=== PATIENT | female | born 1955 | race Caucasian/White ===

== ENCOUNTER → 2021-03-22 | Outpatient (CLI) | payer MEDICARE ==
[~2021-03-22] MED LIST: METHACHOLINE KIT (J7674) INH ONE
--- NOTE | 2021-03-22 13:45 | PFTRPT ---
Site: [facility], [address] [place] [address], [id number] ID: [id number] Name: DORIS SANDERS Visit Date: 03/22/2021 Second ID: [id number] Referring Doctor: Paul Devine D.O. Reviewing Doctor: Shorty Kumar MD [employer] Salesperson: Gladys REECE RRT Age: 65 : 1955 Sex: Female Race: Height: 67.00 Inches Weight: 210.00 Lbs BSA: 2.06 Order IDs: [id number] Requested Test(s): <RESP-PFT.PFT> Diagnosis: R91.8 test meet the ATS standards for acceptability and repeatability. Review Status: Not Reviewed Pre-Bronch Post-Bronch Pred Actual %Pred Actual %Chng SPIROMETRY FVC (L) 3.47 3.33 95 FEV1 (L) 2.65 2.83 106 FEV1/FVC (%) 77 85 110 FEF 25% (L/sec) 5.13 5.87 114 FEF 50% (L/sec) 3.43 3.89 113 FEF 75% (L/sec) 1.05 1.53 145 FEF 25-75% (L/sec) 2.22 3.28 148 FEF Max (L/sec) 6.33 6.41 101 FIVC (L) 3.42 FIF 50% (L/sec) 3.64 6.06 166 FIF Max (L/sec) 6.15 MVV (L/min) 94 95 101 Expiratory Time (sec) 7.04 Back Extrap Vol (L) 0.11 Time To FEFmax (sec) 0.084 LUNG VOLUMES SVC (L) 3.23 3.35 103 IC (L) 2.35 2.83 120 ERV (L) 0.87 0.52 59 TGV (L) 3.15 4.27 135 RV (Pleth) (L) 2.28 3.75 164 TLC (Pleth) (L) 5.50 7.10 129 RV/TLC (Pleth) (%) 42 53 125 DIFFUSION DLCOunc (ml/min/mmHg) 22.07 24.99 113 DLCOcor (ml/min/mmHg) 22.07 24.70 111 DL/VA (ml/min/mmHg/L) 4.01 4.49 111 VA (L) 5.50 5.51 100 BHT (sec) 10.15 IVC (L) 3.29 TLC (SB) (L) 5.66 AIRWAYS RESISTANCE Raw (cmH2O/L/s) 1.86 0.58 31 Gaw (L/s/cmH2O) 1.03 1.99 193 sRaw (cmH2O*s) 4.76 2.36 49 sGaw (1/cmH2O*s) 0.20 0.47 231 BLOOD GASES Hgb (gm/dL) 13.8
--- NOTE | 2021-03-22 14:35 | PFTRPT ---
Site: [facility], [address] [place], [address] ID: [id number] Name: DORIS SANDERS Visit Date: 03/22/2021 Second ID: [id number] Referring Doctor: Paul Devine D.O. Reviewing Doctor: Shorty Kumar MD Car Se[employer] Upholsterer: Gladys REECE RRT Age: 65 : 1955 Sex: Female Race: Height: 67.00 Inches Weight: 210.00 Lbs BSA: 2.06 Order IDs: [id number] Requested Test(s): <RESP-PFT.METH CHAL> Diagnosis: R06.2 of albuterol for post bronchodilator. Review Status: Not Reviewed Pre-Bronch Post-Bronch Pred Actual %Pred Actual %Chng SPIROMETRY FVC (L) 3.47 3.25 93 3.11 -4 FEV1 (L) 2.65 2.74 103 2.58 -5 FEV1/FVC (%) 77 84 110 83 -1 FEF 25% (L/sec) 5.13 5.09 99 5.20 2 FEF 50% (L/sec) 3.43 4.19 122 3.77 -10 FEF 75% (L/sec) 1.05 1.38 131 0.81 -41 FEF 25-75% (L/sec) 2.22 3.27 147 2.62 -19 FEF Max (L/sec) 6.33 5.10 80 5.30 3 FIVC (L) 3.47 3.14 -9 FIF 50% (L/sec) 3.64 5.68 155 6.04 6 FIF Max (L/sec) 5.83 6.05 3 Expiratory Time (sec) 6.78 7.02 3 Back Extrap Vol (L) 0.11 0.10 -9 Time To FEFmax (sec) 0.163 0.123 -24
== END ==
LOC: M CARPUL 12:58
PROVIDERS: ATTEND Internal Medicine Pulmonary Disease
DX: R91.8 Other nonspecific abnormal finding of lung field (principal); R06.02 Shortness of breath
CPT/HCPCS: 88738; 94010; 94070; 94726; 94729; 95070; J7674

== ENCOUNTER → 2021-08-28 | Outpatient (CLI) | payer MEDICARE ==
[~2021-08-28] MED LIST changes: +ISOVUE-300 61% 50ML VIAL As Ordered ONE; +LIDOCAINE 1% MDV 20ML VIAL As Ordered ONE; -METHACHOLINE KIT (J7674) INH ONE; +TRIAMCINOLONE ACETONIDE SUSP 40 MG/ML VIAL (J3301) As Ordered ONE
== END ==
LOC: M RADPRO 14:43
DX: M16.12 Unilateral primary osteoarthritis, left hip (principal)
CPT/HCPCS: 20610; 77002; J3301; Q9967

== ENCOUNTER → 2021-08-31 | Outpatient (REF) | payer MEDICARE | LOC: M LAB REF 16:57 | PROVIDERS: ATTEND Internal Medicine Endocrinology, Diabetes & Metabolism | DX: E04.2 Nontoxic multinodular goiter (principal) ==

== ENCOUNTER → 2021-09-25 | Outpatient (CLI) | payer MEDICARE ==
[~2021-09-25] MED LIST changes: +ATOR80TA59 PO; +CIDA500T2 PO; +ECOT81TA5 PO; +FISH1000 PO; +HYDR12.55 PO; +IRBE300T7 PO; -ISOVUE-300 61% 50ML VIAL As Ordered ONE; -LIDOCAINE 1% MDV 20ML VIAL As Ordered ONE; +METO1TAB7 PO; +NAPR-885 PO; +OMEG10002 PO; -TRIAMCINOLONE ACETONIDE SUSP 40 MG/ML VIAL (J3301) As Ordered ONE; +VALA1TAB5 PO; +VENL-37 PO; +VITMTA PO; +[UNRECOGNIZED DRUG - CODE] PO
== END ==
LOC: M LABSMTC 09:12
PROVIDERS: ATTEND Anesthesiology
DX: Z01.812 Encounter for preprocedural laboratory examination (principal); Z11.52 Encounter for screening for COVID-19

== ENCOUNTER 2021-09-28 09:53 | Day surgery (SDC) | payer MEDICARE ==
[~2021-09-28] VITALS: Ht 170.2 cm; Wt 95.3 kg
[~2021-09-28 09:53] MED LIST changes: +BUPIVACAINE HCL 0.5% 30ML VIAL As Ordered ONE; +LIDOCAINE 2% MDV 20ML VIAL As Ordered ONE; +NEOSPORIN GU IRRIG 20 ML VIAL As Ordered ONE; +VANCOMYCIN HCL 1,000 MG, VIAL MATE ADAPTER 1 EACH in NS 250 ML IV ONE; +dexameTHASONE 4 MG/ML 1ML VIAL (J1100 PER 1MG) As Ordered ONE
[2021-09-28] MEDS ORDERED: GENTAMICIN SULF 80MG/2ML VIAL As Ordered ONE (09:59)
[2021-09-28] MEDS ORDERED: LR 1,000 ML IV SCH (10:05)
[2021-09-28] MEDS ORDERED: VANCOMYCIN HCL 1,000 MG, VIAL MATE ADAPTER 1 EACH in NS 250 ML IV ONE (10:20)
[2021-09-28] MEDS ORDERED: VANCOMYCIN HCL 750 MG, VIAL MATE ADAPTER 1 EACH in NS 250 ML IV ONE ×2 (10:30→11:30)
[2021-09-28] MEDS ORDERED: fentaNYL 100 MCG/2 ML INJECTION As Ordered ONE (12:12)
[2021-09-28] MEDS ORDERED: MIDAZOLAM INJ 2MG/2ML VIAL (J2250 PER 1MG) As Ordered ONE (12:12)
[2021-09-28] MEDS ORDERED: propofoL 200 MG/20 ML VIAL As Ordered ONE (12:12)
[2021-09-28 14:30] VITALS: BP 121/65
== END 2021-09-28 14:42 | disposition home or self-care (01) ==
LOC: M SDC 09:53
PROVIDERS: ATTEND Podiatrist
DX: D17.23 Benign lipomatous neoplasm of skin and subcutaneous tissue of right leg (principal); I10 Essential (primary) hypertension; E78.5 Hyperlipidemia, unspecified; K21.9 Gastro-esophageal reflux disease without esophagitis; F41.9 Anxiety disorder, unspecified; F32.A Depression, unspecified; E04.1 Nontoxic single thyroid nodule; Z79.899 Other long term (current) drug therapy; Z88.0 Allergy status to penicillin; Z87.891 Personal history of nicotine dependence
CPT/HCPCS: 28043; 88307; 88331; J1100; J1580; J2250; J3010; J3370

== ENCOUNTER → 2021-11-05 | Outpatient (CLI) | payer MEDICARE ==
[~2021-11-05] MED LIST changes: -BUPIVACAINE HCL 0.5% 30ML VIAL As Ordered ONE; -LIDOCAINE 2% MDV 20ML VIAL As Ordered ONE; -NEOSPORIN GU IRRIG 20 ML VIAL As Ordered ONE; -VANCOMYCIN HCL 1,000 MG, VIAL MATE ADAPTER 1 EACH in NS 250 ML IV ONE; -dexameTHASONE 4 MG/ML 1ML VIAL (J1100 PER 1MG) As Ordered ONE
[2021-11-05 12:36] LABS: HEMATOCRIT 42.1 % (36.0-47.0); HEMOGLOBIN 13.9 g/dl (12.0-15.5); MEAN CORPUSCULAR HEMOGLOBIN 32.9 pg (27.0-33.0); MEAN CORPUSCULAR VOLUME 99.5 fl (80.0-96.0); PLATELET COUNT, AUTOMATED 261 10^3/uL (150-450); RED BLOOD COUNT 4.23 10^6/uL (4.00-5.40)
[2021-11-05 12:51] LABS: INR 1.01; PROTHROMBIN TIME 13.7 SECONDS (12.7-14.5)
[2021-11-05 13:03] LABS: BLOOD UREA NITROGEN 17 MG/DL (7-18); CALCIUM LEVEL 9.3 MG/DL (8.8-10.2); CARBON DIOXIDE LEVEL 30 MEQ/L (21-32); CHLORIDE LEVEL 102 MEQ/L (98-107); CREATININE FOR GFR 0.82 MG/DL (0.55-1.30); GLOMERULAR FILTRATION RATE > 60.0 (>45); GLUCOSE, FASTING 89 MG/DL (70-100); POTASSIUM SERUM 4.5 MEQ/L (3.5-5.1); SODIUM LEVEL 136 MEQ/L (136-145)
[2021-11-05 13:04] LABS: ALBUMIN 3.5 GM/DL (3.2-5.2); ALT/SGPT 29 U/L (12-78); BILIRUBIN,TOTAL 0.6 MG/DL (0.2-1.0); TOTAL PROTEIN 6.9 GM/DL (6.4-8.2)
[2021-11-05 14:18] LABS: ERYTHROCYTE SEDIMENTATION RATE 16 mm/hr (0-30)
== END ==
LOC: M RAD 10:44
PROVIDERS: ATTEND Orthopaedic Surgery
DX: M16.12 Unilateral primary osteoarthritis, left hip (principal); Z79.899 Other long term (current) drug therapy

== ENCOUNTER → 2022-04-15 | Outpatient (REF) | payer MEDICARE | LOC: M LAB REF 17:12 | PROVIDERS: ATTEND Internal Medicine Endocrinology, Diabetes & Metabolism | DX: E04.1 Nontoxic single thyroid nodule (principal) ==